=== PATIENT | female | born 1985 | race Caucasian/White ===

== ENCOUNTER → 2016-09-22 | Outpatient (CLI) | payer OTHER ==
[~2016-09-22] MED LIST: ACET50TA PO; ACET65TA; DOCU10CA PO; IRONTAB3 PO; LEVA750T; LEVO100T5 PO; LEVOTHYROXINE PO; MOTR200T44 PO; PRENATAL VITAMIN PO; THERGRAN; [UNRECOGNIZED DRUG - OTHER]
--- NOTE | 2016-09-22 17:06 | REP ---
To ischium and obstetric ultrasound for anatomy: There is a single intrauterine gestation in a breech presentation. There is movement and cardiac activity. The heart rate is 141 beats per minute. The placenta is posterior. There is no placenta previa or abruptio. Placenta is grade 0 maturity. The amniotic fluid volume subjectively is normal. The cervix is 4.3 cm length. By today's measurements gestational age is 19 weeks 2 days with an PRAVIN of 02/14/2017. The LMP is unknown. weight is 308 grams (0 pounds, 10 ounces). This is the 64th percentile for 19 weeks 2 days. The following anatomic structures are identified and are unremarkable: Intracranial lateral ventricles, choroid plexus, cisterna magna, face, facial profile, lungs, four-chamber heart, cardiac left ventricular outflow tract, diaphragm, stomach, cord insertion, kidneys, bladder, spine and upper lower extremities: Suboptimally demonstrated are the upper lip, right ventricular cardiac outflow tract and three-vessel cord. All of the followup study dedicated to these structures might be considered. Otherwise, there are no anomalies. Signed by Daljit Garcia MD 09/22/2016 04:59 P
== END ==
LOC: M SMT 14:42
PROVIDERS: ATTEND Advanced Practice Midwife
DX: Z36 Encounter for antenatal screening of mother (principal); Z3A.19 19 weeks gestation of pregnancy

== ENCOUNTER → 2016-09-24 | Outpatient (REF) | payer OTHER | END | disposition home or self-care (01) | LOC: M LAB REF 13:42 | PROVIDERS: ATTEND Physician Assistant | DX: J11.1 Influenza due to unidentified influenza virus with other respiratory manifestations (principal) ==

== ENCOUNTER → 2016-10-27 | Outpatient (CLI) | payer OTHER ==
--- NOTE | 2016-10-28 04:52 | REP ---
Clinical: Anatomical evaluation. Comparison: 09/22/2016 . Findings: Examination demonstrates a single live intrauterine in cephalic presentation. motion is identified by technologist. Placenta is noted posteriorly and grade zero without evidence for placenta previa or abruption. Amniotic fluid volume is normal. Cervix measures 5.1 cm in length and appears closed. No evidence for nuchal cord. Gestational age by first ultrasound 24 weeks 2 days with PRAVIN 02/14/2017 . Gestational age by current measurements 23 weeks 6 days with PRAVIN 02/17/2017 . FHR equals 144 beats per minute. Estimated weight 697 grams ( 50th percentile). Anatomical assessment demonstrates normal structures including cranium, choroid plexus, cavum, cerebellum/posterior fossa, facial features, lungs, four-chamber heart/ventricular outflow tracts, diaphragm, stomach, cord insertion/three-vessel cord, kidneys/bladder, spine, and extremities. Impression: Single live intrauterine in breech presentation demonstrating appropriate interval growth. Anatomical assessment is complete and normal. Signed by Georgi Linares MD 10/28/2016 04:44 A
== END ==
LOC: M SMT 13:44
PROVIDERS: ATTEND Advanced Practice Midwife
DX: Z36 Encounter for antenatal screening of mother (principal); Z3A.23 23 weeks gestation of pregnancy

== ENCOUNTER → 2016-10-31 | Outpatient (CLI) | payer MEDICAID ==
[2016-10-31 13:05] LABS: MEAN CORPUSCULAR HEMOGLOBIN 31.6 pg (27.0-33.0); MEAN CORPUSCULAR HGB CONC 34.3 g/dl (32.0-36.5); MEAN CORPUSCULAR VOLUME 92.3 fl (80.0-96.0); RED CELL DISTRIBUTION WIDTH 12.7 % (11.5-14.5)
[2016-10-31 13:44] LABS: FREE T4 0.84 NG/DL (0.76-1.46)
== END ==
LOC: M LAB 12:21
PROVIDERS: ATTEND Advanced Practice Midwife
DX: Z36 Encounter for antenatal screening of mother (principal)

== ENCOUNTER 2016-12-15 14:07 | Observation (INO) | payer MEDICAID, OTHER ==
[2016-12-15] VITALS (7 sets, daily range): BP systolic 100–115; BP diastolic 53–63
[~2016-12-15] VITALS: Ht 162.6 cm; Wt 86.4 kg
[2016-12-15 17:02] LABS: CALCIUM OXALATE CRYSTALS SMALL
[2016-12-15 17:05] LABS: BASO % 0.2 % (0.0-1.0); EOS # 0.1 K/mm3 (0.0-0.50); EOS % 0.9 % (0.0-3.0); LARGE UNSTAINED CELL # 0.2 K/mm3 (0.0-0.4); LYMPH # 2.8 K/mm3 (1.5-6.5); LYMPH % 24.3 % (24.0-44.0); MEAN CORPUSCULAR HEMOGLOBIN 31.7 pg (27.0-33.0); MEAN CORPUSCULAR HGB CONC 33.5 g/dl (32.0-36.5); MEAN CORPUSCULAR VOLUME 94.7 fl (80.0-96.0); MONO # 0.7 K/mm3 (0.0-0.8); MONO % 5.8 % (0.0-5.0); NEUTROPHILS # 7.8 K/mm3 (1.8-7.7); NEUTROPHILS % 66.8 % (36.0-66.0); PLATELET COUNT, AUTOMATED 270 k/mm3 (150-450); RED CELL DISTRIBUTION WIDTH 12.6 % (11.5-14.5); WHITE BLOOD COUNT 11.7 K/mm3 (4.0-10.0)
[2016-12-15 17:26] LABS: ALBUMIN 2.8 GM/DL (3.2-5.2); ANION GAP 12 MEQ/L (8-16); BLOOD UREA NITROGEN 6 MG/DL (7-18); CALCIUM LEVEL 8.4 MG/DL (8.5-10.1); CARBON DIOXIDE LEVEL 22 MEQ/L (21-32); CHLORIDE LEVEL 106 MEQ/L (98-107); CREATININE FOR GFR 0.45 MG/DL (0.55-1.02); GLOMERULAR FILTRATION RATE > 60.0 (>60); GLUCOSE, FASTING 73 MG/DL (70-105); PHOSPHORUS LEVEL 2.6 MG/DL (2.5-4.9); POTASSIUM SERUM 3.3 MEQ/L (3.5-5.1); SODIUM LEVEL 140 MEQ/L (136-145)
[2016-12-15] MEDS ORDERED: LACTATED RINGER'S 1000 ML IV ONE (18:15)
[2016-12-15] MEDS ORDERED: NITROFURANTOIN (MACROBID) 100 MG CAP PO ONE (18:15)
--- NOTE | 2016-12-15 19:00 | REP ---
RENAL AND BLADDER ULTRASOUND: Real-time sonographic evaluation of the kidneys are performed. Kidneys are normal in size and echotexture. Right kidney measuring 12.2 x 4.3 x 6.4 cm and left kidney 12.2 x 4.7 x 6.4 cm. There is mild right hydronephrosis. No hydronephrosis. No hydronephrosis is seen on the left. No renal stones are seen. Urinary bladder is well distended and grossly unremarkable. Patient is reportedly 34-weeks and heart rate is 153 beats per minute. IMPRESSION: Mild right hydronephrosis. Signed by Daljit Lees MD 12/16/2016 05:15 P
[2016-12-15] MEDS: cefTRIAXone SOD 1 GM in D5W MINI-BAG PLUS 50 ML IV SCH (19:30)
[2016-12-16 01:49] VITALS: BP 109/56
[2016-12-16 05:45] VITALS: BP 107/59
[2016-12-16] MEDS: cefTRIAXone SOD 1 GM in D5W MINI-BAG PLUS 50 ML IV SCH ×2 (06:12→18:41)
[2016-12-16 08:58] LABS: BASO % 0.2 % (0.0-1.0); EOS # 0.1 K/mm3 (0.0-0.50); EOS % 1.4 % (0.0-3.0); LARGE UNSTAINED CELL # 0.2 K/mm3 (0.0-0.4); LARGE UNSTAINED CELL % 1.6 % (0.0-4.0); LYMPH # 2.2 K/mm3 (1.5-6.5); LYMPH % 23.2 % (24.0-44.0); MEAN CORPUSCULAR HEMOGLOBIN 32.1 pg (27.0-33.0); MEAN CORPUSCULAR HGB CONC 33.4 g/dl (32.0-36.5); MEAN CORPUSCULAR VOLUME 95.9 fl (80.0-96.0); MONO # 0.5 K/mm3 (0.0-0.8); NEUTROPHILS # 6.4 K/mm3 (1.8-7.7); NEUTROPHILS % 68.6 % (36.0-66.0); PLATELET COUNT, AUTOMATED 245 k/mm3 (150-450); RED CELL DISTRIBUTION WIDTH 12.6 % (11.5-14.5); WHITE BLOOD COUNT 9.3 K/mm3 (4.0-10.0)
[2016-12-16 10:00] VITALS: BP 128/73
[2016-12-16 14:15] VITALS: BP 109/66
[2016-12-16 20:00] VITALS: BP 107/57
== END 2016-12-16 21:45 | disposition home or self-care (01) ==
LOC: M LDO 14:07 → M OBS 19:14 → M LDO 12-16 08:51 → M PED 12-16 14:07
PROVIDERS: ADMIT Obstetrics & Gynecology; ATTEND Advanced Practice Midwife
DX: O23.43 Unspecified infection of urinary tract in pregnancy, third trimester (principal); Z3A.31 31 weeks gestation of pregnancy

== ENCOUNTER → 2017-01-10 | Outpatient (CLI) | payer MEDICAID ==
[2017-01-10 18:48] LABS: FREE T4 0.94 NG/DL (0.76-1.46)
== END ==
LOC: M SMT 15:59
PROVIDERS: ATTEND Advanced Practice Midwife
DX: E03.9 Hypothyroidism, unspecified (principal)

== ENCOUNTER → 2017-01-17 | Outpatient (REF) | payer OTHER | LOC: M LAB REF 17:15 | PROVIDERS: ATTEND Advanced Practice Midwife | DX: Z34.83 Encounter for supervision of other normal pregnancy, third trimester (principal) ==

== ENCOUNTER 2017-02-09 06:27 | Inpatient (IN) | payer OTHER ==
[2017-02-09] VITALS (24 sets, daily range): BP systolic 93–124; BP diastolic 53–77
[2017-02-09] MEDS ORDERED: PENICILLIN G POTASSIUM IV 5 MU in D5W MINI-BAG PLUS 100 ML IV STA (06:58)
--- NOTE | 2017-02-09 07:45 | HPE ---
DATE OF ADMISSION: 02/09/2017 Luz is a 31-year-old, 3, para 1-1-0-2, at 39-6/7 weeks gestation with an expected date of confinement (EDC) of 02/10/2017 based on last normal menstrual period and confirmed by first trimester ultrasound. She presents to labor and delivery today with report of contractions about every 10 minutes apart throughout the night and spontaneous rupture of membranes of clear odorless fluid at 0500. She does report contractions are slightly more intense since rupture, but still about 10 minutes apart. She denies vaginal bleeding, has continued to leak fluid and the fetus has been active. care was initiated at [facility] in the first trimester. course complicated by hypothyroid with her labs being monitored throughout . She currently takes Synthroid 100 mcg. OBSTETRICAL HISTORY: October 2009, she had a spontaneous vaginal delivery at 35 weeks gestation for a 6 pounds 6 ounces female. July 2014, she had a spontaneous vaginal delivery at 42 weeks for 9 pounds 2 pounds male. OB LABS: Blood type A positive. Antibody screen negative. Pap was normal. Rubella immune. VDRL nonreactive. Urine culture no growth. Hepatitis B surface antigen negative. HIV negative. Hepatitis C antibody nonreactive. Gonorrhea and chlamydia negative. She declined genetic serum screening labs. Gestational diabetic screening normal at 106. Her GBS is positive. PAST MEDICAL HISTORY: Hypothyroid. Childhood varicella. SURGERIES: None. FAMILY HISTORY: Hypertension, heart disease, asthma. SOCIAL HISTORY: The patient is . Her is at bedside and supportive. She is a nonsmoker. Denies any alcohol or drug use. No history of any sexually transmitted infections and denies history of abuse - physical, sexual and emotional. ALLERGIES: No known drug allergies. CURRENT MEDICATIONS (Include): - levothyroxine 100 mcg - vitamin OBJECTIVE: Blood pressure is 115/59. Pulse 69. Temperature has not been taken at this time. She is alert and oriented times three. She does not seem to be in any apparent distress. heart rate is 130, moderate variability, positive accelerations observed, no decelerations. Occasional contraction observed on external monitor (EFM). Sterile spec exam grossly ruptured, clear fluid, positive pooling, positive Valsalva, positive Nitrazine and positive ferning. Sterile vaginal exam 2 cm dilated, 80% effaced, minus two station. Her abdomen is gravid, cephalic presentation with an estimated weight about 8 pounds. ASSESSMENT: 1. Intrauterine at 39-6/7 weeks. 2. heart rate category one. 3. Premature rupture of membranes. PLAN: Admit the patient to labor and delivery. Labs as ordered. Out of bed ad bert. Regular diet at this time. Start IV antibiotics for GBS prophylaxis. Once she is treated appropriately for GBS, IV Pitocin will be started to augment her labor. The patient hopes to cope with her labor without an epidural. I do anticipate labor and a spontaneous vaginal delivery.
[2017-02-09 08:08] LABS: MEAN CORPUSCULAR HEMOGLOBIN 30.9 pg (27.0-33.0); MEAN CORPUSCULAR HGB CONC 34.7 g/dl (32.0-36.5); MEAN CORPUSCULAR VOLUME 89.1 fl (80.0-96.0); WHITE BLOOD COUNT 13.3 K/mm3 (4.0-10.0)
[2017-02-09] MEDS: PENICILLIN G POTASSIUM IV 2.5 MU in D5W 100 ML IV SCH ×3 (12:48→20:55)
[2017-02-09] MEDS ORDERED: OXYTOCIN 30 UNITS IN 0.9% NaCl 500ML IV BAG (J2590) As Ordered ONE (13:52)
[2017-02-09] MEDS ORDERED: OXYTOCIN DRIP 30 UNITS in APPROPRIATE DILUENT 1 EA IV SCH (14:00)
[2017-02-09] MEDS: LR 1,000 ML IV SCH (14:07)
[2017-02-10] VITALS (20 sets, daily range): BP systolic 89–143; BP diastolic 50–80
[2017-02-10] MEDS: PENICILLIN G POTASSIUM IV 2.5 MU in D5W 100 ML IV SCH (00:54)
[2017-02-10] MEDS ORDERED: miSOPROStol 50 MCG 1/2 TAB (S0191) PO SCH (02:15)
[2017-02-10] MEDS: LR 1,000 ML IV SCH (02:21)
[2017-02-10] MEDS ORDERED: OXYTOCIN 30 UNITS IN 0.9% NaCl 500ML IV BAG (J2590) As Ordered ONE (05:00)
[2017-02-10 05:43] LABS: CORD GAS ABE A -2.6; CORD GAS ABE V -4.9; CORD GAS HCO3 A 24.5 MEQ/L; CORD GAS HCO3 V 19.2 MEQ/L; CORD GAS O2 SAT A 30.6 %; CORD GAS O2 SAT V 69.5 %; CORD GAS PCO2 A 50.9 mmHg; CORD GAS PCO2 V 33.4 mmHg; CORD GAS PH A 7.3 UNITS; CORD GAS PH V 7.377 UNITS; CORD GAS PO2 A 16.5 mmHg; CORD GAS PO2 V 30.4 mmHg; CORD GAS SBC A 20.7 MEQ/L; CORD GAS SBC V 19.8 MEQ/L; CORD GAS TCO2 V 20.2 MEQ/L
[2017-02-10] MEDS ORDERED: OXYTOCIN DRIP 30 UNITS in APPROPRIATE DILUENT 1 EA IV SCH (05:55)
[2017-02-10] MEDS ORDERED: MEASLES,MUMPS,RUBELLA VACCINE INJ (MMR-II) (90707) SC SCH (06:00)
[2017-02-10] MEDS ORDERED: METHYLERGONOVINE MALEATE 0.2 MG TAB PO PRN (06:00)
[2017-02-10] MEDS ORDERED: ACETAMINOPHEN 500 MG TAB PO PRN (06:00)
[2017-02-10] MEDS ORDERED: ANUSOL HC CREAM 30GM TOP PRN (06:00)
[2017-02-10] MEDS ORDERED: DOCUSATE SODIUM 100 MG CAP PO PRN (06:00)
[2017-02-10] MEDS ORDERED: MOM 30ML SUSPENSION UDC PO PRN (06:00)
[2017-02-10] MEDS ORDERED: DIBUCAINE 1% OINTMENT 30GM TOP PRN (06:00)
[2017-02-10] MEDS ORDERED: IBUPROFEN 800 MG TAB PO PRN (06:00)
[2017-02-10] MEDS ORDERED: RHOGAM 300 MCG (1500 IU) INJ (J2790) IM SCH (06:00)
--- NOTE | 2017-02-10 06:31 | DN ---
DATE OF DELIVERY: 02/10/2017 TIME OF : 0513. GENDER: Female. scores 8 and 9. Weight was 3338, 7 pounds, 6 ounces. ANESTHESIA: None. LACERATIONS: None. COUNTS: Five laparotomy sponges accounted for prior to and after the delivery. Two sharps removed from the delivery field. CORD GAS: 7.30, 7.37, base excess of -2.6, -4.9 respectively. ESTIMATE BLOOD LOSS: 300ml DELIVERY NOTE: On 02/10/2017, at 0513, this patient, a 31-year-old 3, now para 3, had a spontaneous vaginal delivery of a liveborn female , scores 8 and 9. Weight was 7 pounds 6 ounces at 3338 grams. Head was delivered left occiput anterior (MYRA) over an intact perineum. There is a tight nuchal cord which was surgically reduced, followed by delivery of shoulders and corpus. was handed to mom with a good cry. Cord gases and cord blood was obtained. The placenta was drained and delivered grossly intact. A premixed bag of 500 mL of normal saline with 30 units of Pitocin was bolused along with uterine massage. The uterus was firm. On inspection, cervix, vagina and perineum were grossly intact, hemostatic. Mom and baby to recovery in stable condition. [facility]
[2017-02-10] MEDS: PRENATAL VITAMINS CHEWABLE TABLET PO SCH (10:08)
[2017-02-11 06:00] VITALS: BP 116/77
[2017-02-11] MEDS: PRENATAL VITAMINS CHEWABLE TABLET PO SCH (08:22)
[2017-02-11 18:00] VITALS: BP 137/84
[2017-02-12 06:19] VITALS: BP 122/77
[2017-02-12] MEDS ORDERED: IBUP-1114 PO (09:58)
[2017-02-12] MEDS ORDERED: ACET50TA PO (09:58)
[2017-02-12] MEDS: PRENATAL VITAMINS CHEWABLE TABLET PO SCH (10:04)
== END 2017-02-12 13:44 | disposition home or self-care (01) | DRG 560 ==
LOC: M LDO 06:27 → M LDI 06:53 → M OBS 02-10 08:25
PROVIDERS: ADMIT Advanced Practice Midwife; ATTEND Advanced Practice Midwife
PROC: 10E0XZZ Delivery of Products of Conception, External Approach (ICD-10-PCS; principal; 2017-02-10)
DX: O69.1XX0 Labor and delivery complicated by cord around neck, with compression, not applicable or unspecified (principal); E03.9 Hypothyroidism, unspecified; Z37.0 Single live birth; Z3A.39 39 weeks gestation of pregnancy; Z79.899 Other long term (current) drug therapy; O99.284 Endocrine, nutritional and metabolic diseases complicating childbirth

== ENCOUNTER → 2018-07-28 | Outpatient (REF) | payer OTHER ==
[~2018-07-28] MED LIST changes: -ACET50TA PO; +IBUP-1114 PO; +MAPA500T17 PO
[2018-07-28 21:58] LABS: AMORPHOUS SEDIMENT SMALL (NEGATIVE); APPEARANCE, URINE CLOUDY (CLEAR); BACTERIA, URINE AUTO NEGATIVE (NEGATIVE); BILIRUBIN, URINE AUTO NEGATIVE (NEGATIVE); BLOOD, URINE BLOOD 3+ (NEGATIVE); COLOR, URINE YELLOW (YELLOW); GLUCOSE, URINE (UA) AUTO NEGATIVE (NEGATIVE); KETONE, URINE AUTO NEGATIVE (NEGATIVE); LEUKOCYTE ESTERASE, URINE AUTO 3+ (NEGATIVE); NITRITE, URINE AUTO NEGATIVE (NEGATIVE); PROTEIN, URINE AUTO NEGATIVE (NEGATIVE); RBC, URINE AUTO TNTC /HPF (0-3); SPECIFIC GRAVITY URINE AUTO 1.014 (1.002-1.035); SQUAMOUS EPITHELIAL CELL UR AU 1 /HPF (0-6); UROBILINOGEN, URINE AUTO 0.2 mg/dL (0.0-2.0); WBC, URINE AUTO 92 /HPF (0-3)
== END ==
LOC: M LAB REF 12:34
PROVIDERS: ATTEND Nurse Practitioner Family
DX: N39.0 Urinary tract infection, site not specified (principal)

== ENCOUNTER → 2019-03-19 | Outpatient (CLI) | payer OTHER, SELFPAY ==
[~2019-03-19] MED LIST changes: -MAPA500T17 PO; +MAPA500T2 PO
[2019-03-19 09:29] LABS: ALBUMIN 3.8 GM/DL (3.2-5.2); ALT/SGPT 16 U/L (12-78); BILIRUBIN,TOTAL 0.5 MG/DL (0.2-1.0); BLOOD UREA NITROGEN 17 MG/DL (7-18); CALCIUM LEVEL 8.7 MG/DL (8.5-10.1); CARBON DIOXIDE LEVEL 25 MEQ/L (21-32); CHLORIDE LEVEL 109 MEQ/L (98-107); CHOLESTEROL LEVEL 207 MG/DL (<200); CREATININE FOR GFR 0.51 MG/DL (0.55-1.30); GLOMERULAR FILTRATION RATE > 60.0 (>60); GLUCOSE, FASTING 79 MG/DL (70-100); HDL CHOLESTEROL 50 MG/DL (>40); LDL CHOLESTEROL 120 MG/DL (<100); NON-HDL-C 157 MG/DL; SODIUM LEVEL 139 MEQ/L (136-145); TRIGLYCERIDES LEVEL 187 MG/DL (<150)
== END ==
LOC: M LAB 08:07
PROVIDERS: ATTEND Family Medicine
DX: Z00.00 Encounter for general adult medical examination without abnormal findings (principal); E03.9 Hypothyroidism, unspecified; Z13.89 Encounter for screening for other disorder

== ENCOUNTER → 2019-06-24 | Outpatient (REF) | payer BC | LOC: M LAB REF 18:33 | PROVIDERS: ATTEND Nurse Practitioner Family | DX: R51 Headache (principal); R11.10 Vomiting, unspecified ==

== ENCOUNTER → 2019-06-24 | Outpatient (CLI) | payer BC ==
--- NOTE | 2019-06-24 13:47 | REP ---
CT brain: 06/24/2019. Indication: Headache and emesis. Comparison: 05/03/2013. Technique: Unenhanced axial CT images of the brain were obtained from skull base to vertex. Findings: There is no acute intracranial hemorrhage, acute cortical infarction, mass effect or hydrocephalous. Periosteal mucosal thickening is present within the ethmoid air cells. The mastoid air cells are clear. Impression: No acute intracranial process. Electronically Signed by Sina Prescott DO 06/24/2019 01:39 P
--- NOTE | 2019-06-24 13:53 | REP ---
Seven views cervical spine: 06/24/2019. Indication: Neck pain. Comparison: 11/23/2005. Findings: There is no acute fracture, subluxation or dislocation. There is no instability on the flexion/extension views. The prevertebral and additional soft tissues are unremarkable. Impression: Unremarkable cervical spine. Electronically Signed by Sina Prescott DO 06/24/2019 01:45 P
== END ==
LOC: M RAD 12:58
PROVIDERS: ATTEND Nurse Practitioner Family
DX: M54.2 Cervicalgia (principal); R51 Headache; R11.10 Vomiting, unspecified

== ENCOUNTER → 2019-07-30 | Outpatient (CLI) | payer BC ==
[2019-07-30 11:11] LABS: BASO % 0.3 % (0.0-1.0); EOS # 0.2 10^3/uL (0.0-0.5); EOS % 2.3 % (0.0-3.0); HEMATOCRIT 43.6 % (36.0-47.0); HEMOGLOBIN 14.3 g/dl (12.0-15.5); LYMPH # 2.1 10^3/uL (1.5-5.0); LYMPH % 29.1 % (24.0-44.0); MEAN CORPUSCULAR HEMOGLOBIN 30.8 pg (27.0-33.0); MEAN CORPUSCULAR HGB CONC 32.8 g/dl (32.0-36.5); MEAN CORPUSCULAR VOLUME 93.8 fl (80.0-96.0); MONO # 0.6 10^3/uL (0.0-0.8); MONO % 7.9 % (0.0-5.0); NEUTROPHILS # 4.4 10^3/uL (1.5-8.5); PLATELET COUNT, AUTOMATED 320 10^3/uL (150-450); RED BLOOD COUNT 4.65 10^6/uL (4.00-5.40); WHITE BLOOD COUNT 7.3 10^3/uL (4.0-10.0)
[2019-07-30 11:35] LABS: ERYTHROCYTE SEDIMENTATION RATE 12 mm/hr (0-20)
[2019-07-30 11:42] LABS: ALBUMIN 4.2 GM/DL (3.2-5.2); ALT/SGPT 15 U/L (12-78); BILIRUBIN,TOTAL 0.6 MG/DL (0.2-1.0); BLOOD UREA NITROGEN 11 MG/DL (7-18); CALCIUM LEVEL 9.6 MG/DL (8.5-10.1); CARBON DIOXIDE LEVEL 27 MEQ/L (21-32); CHLORIDE LEVEL 105 MEQ/L (98-107); CREATININE FOR GFR 0.65 MG/DL (0.55-1.30); GLOMERULAR FILTRATION RATE > 60.0 (>60); GLUCOSE, FASTING 95 MG/DL (70-100); POTASSIUM SERUM 4.3 MEQ/L (3.5-5.1); RHEUMATOID FACTOR QUANT < 10.0 IU/ML (<15.0); SODIUM LEVEL 139 MEQ/L (136-145)
[2019-07-31 14:36] LABS: ANTINUCLEAR ANTIBODIES DIRECT Negative (Negative)
== END ==
LOC: M LAB 09:37
PROVIDERS: ATTEND Psychiatry & Neurology Neurology
DX: R51 Headache (principal)

== ENCOUNTER → 2020-08-27 | Outpatient (CLI) | payer BC ==
[2020-08-27 13:07] LABS: ALBUMIN 4.2 GM/DL (3.2-5.2); ALT/SGPT 21 U/L (12-78); BILIRUBIN,TOTAL 0.3 MG/DL (0.2-1.0); BLOOD UREA NITROGEN 10 MG/DL (7-18); CALCIUM LEVEL 9.3 MG/DL (8.5-10.1); CARBON DIOXIDE LEVEL 23 MEQ/L (21-32); CHLORIDE LEVEL 110 MEQ/L (98-107); CHOLESTEROL LEVEL 210 MG/DL (<200); CREATININE FOR GFR 0.72 MG/DL (0.55-1.30); FREE T4 1.01 NG/DL (0.76-1.46); GLOMERULAR FILTRATION RATE > 60.0 (>60); GLUCOSE, FASTING 86 MG/DL (70-100); HDL CHOLESTEROL 58 MG/DL (>40); LDL CHOLESTEROL 115 MG/DL (<100); NON-HDL-C 152 MG/DL; POTASSIUM SERUM 3.9 MEQ/L (3.5-5.1); SODIUM LEVEL 139 MEQ/L (136-145); TOTAL PROTEIN 7.7 GM/DL (6.4-8.2); TRIGLYCERIDES LEVEL 187 MG/DL (<150)
== END ==
LOC: M LAB 10:21
PROVIDERS: ATTEND Family Medicine
DX: Z00.00 Encounter for general adult medical examination without abnormal findings (principal); E03.9 Hypothyroidism, unspecified

== ENCOUNTER → 2020-10-24 | Outpatient (REF) | payer BC | LOC: M LAB REF 17:59 | PROVIDERS: ATTEND Physician Assistant Medical | DX: Z20.828 Contact with and (suspected) exposure to other viral communicable diseases (principal) ==

== ENCOUNTER → 2021-01-04 | Outpatient (CLI) | payer BC ==
[2021-01-04 15:19] LABS: ALT/SGPT 18 U/L (12-78); BLOOD UREA NITROGEN 8 MG/DL (7-18); CALCIUM LEVEL 8.5 MG/DL (8.5-10.1); CARBON DIOXIDE LEVEL 22 MEQ/L (21-32); CHLORIDE LEVEL 111 MEQ/L (98-107); CHOLESTEROL LEVEL 208 MG/DL (<200); CHOLESTEROL RISK RATIO 3.354 (<5); CREATININE FOR GFR 0.58 MG/DL (0.55-1.30); FREE T4 0.95 NG/DL (0.76-1.46); GLOMERULAR FILTRATION RATE > 60.0 (>60); GLUCOSE, FASTING 79 MG/DL (70-100); HDL CHOLESTEROL 62 MG/DL (>40); LDL CHOLESTEROL 127 MG/DL (<100); NON-HDL-C 146 MG/DL; POTASSIUM SERUM 3.9 MEQ/L (3.5-5.1); SODIUM LEVEL 140 MEQ/L (136-145); TOTAL PROTEIN 7.1 GM/DL (6.4-8.2); TRIGLYCERIDES LEVEL 96 MG/DL (<150)
== END ==
LOC: M LAB 13:20
PROVIDERS: ATTEND Family Medicine
DX: E03.9 Hypothyroidism, unspecified (principal); R63.5 Abnormal weight gain

== ENCOUNTER → 2022-08-16 | Outpatient (REF) | payer OTHER | LOC: M PLALAB 16:26 | PROVIDERS: ATTEND Obstetrics & Gynecology | DX: Z01.419 Encounter for gynecological examination (general) (routine) without abnormal findings (principal) | CPT/HCPCS: 87624; G0123 ==

== ENCOUNTER → 2022-09-23 | Outpatient (REF) | payer BC | LOC: M LAB REF 16:25 | PROVIDERS: ATTEND Family Medicine | DX: R30.0 Dysuria (principal) ==

== ENCOUNTER → 2023-09-18 | Outpatient (REF) | LOC: M EMP 09:13 | PROVIDERS: ATTEND Family Medicine | DX: Z53.9 Procedure and treatment not carried out, unspecified reason (principal) ==